=== PATIENT | female | born 1985 | race Caucasian/White ===

== ENCOUNTER 2017-04-25 13:32 | Emergency (ER) | payer BC ==
[~2017-04-25] VITALS: Ht 167.6 cm; Wt 87.0 kg
[~2017-04-25 13:32] MED LIST: LEVO75TA5 PO; OXYC1TAB3 PO; SIMV40TA2 PO
[2017-04-25 13:40] VITALS: TEMP 36.9; Ht 167.6 cm; Wt 87.0 kg
[2017-04-25] MEDS ORDERED: KETOROLAC TROMETHAMINE 30 MG/ML VIAL IV STA (14:17)
[2017-04-25] MEDS ORDERED: SODIUM CHLORIDE 0.9% 1000ML 1,000 ML IV STA (14:17)
[2017-04-25] MEDS ORDERED: IBUP-1050 PO (14:29)
[2017-04-25] MEDS ORDERED: FLUT0.15 NAE (14:29)
[2017-04-25] MEDS ORDERED: SERT50TA PO (14:29)
[2017-04-25] MEDS ORDERED: DIPH1TAB87 PO (14:29)
[2017-04-25 14:37] LABS: URINE APPEARANCE CLEAR (CLEAR); URINE BILIRUBIN NEG (NEG); URINE COLOR YELLOW; URINE EPITHELIAL CELL AUTO 20-30 /lpf (0-5); URINE NITRITE NEG (NEG); URINE PH 5.5 (4.5-7.5); UROBILINOGEN NEG (NEG); ZZUR CULT IF INDIC CLEAN CATCH NO
--- NOTE | 2017-04-25 14:40 | EMERGENCY ROOM VISIT NOTE ---
History Report prepared by Zacarias: Be Pickering Under the Supervision of: Dr. Ken Becerra M.D. First contact with patient: 14:14 Chief Complaint: FLANK PAIN Stated Complaint: LEFT FLANK PAIN History of Present Illness The patient is a 31 year old female who presents to the Emergency Room with complaints of worsening left lower flank pain for the past week. She currently rates her discomfort as an 8/10 in severity. The patient states that the pain feels like a knife is stabbing her, and she states that the pain radiates from her back to her front abdomen as well. She states that the severity of the pain goes from a 5/10 to a 8/10 in severity. She additionally states that she is having some nausea from the pain. The patient denies any problems urinating or troubles with bowel movements. She states that her last bowel movement was two days ago, though this is normal for her. She additionally denies any leg pain, fevers, chills, vaginal discharge, pain with urination. The patient was evaluated in the ED for similar symptoms a week ago, though this morning she has a very sever pain leading her to come to the ED for evaluation. Her last menstrual cycle was the end of last month. Source of History: patient Onset: a week ago Position: other (left flank) Symptom Intensity: 8/10 Quality: stabbing Timing: worsening Associated Symptoms: + nausea, + abdominal pain, + back pain, No urinary symptoms Review of Systems See HPI for pertinent positives and negatives. A total of ten systems were reviewed and were otherwise negative. Family History Cancer Diabetes mellitus Hypertension Kidney disease Kidney stones Social History Smoking Status: Never Smoker Marital Status: Occupation Status: employed Current/Historical Medications Scheduled Fluticasone Propionate (Nasal) (Flonase Allergy Relief), 1 SPRAY SHAYNA QAM Sertraline (Zoloft), 50 MG PO DAILY Scheduled PRN Diphenhydramine Hcl (Benadryl Allergy), 25 MG PO UD PRN for ALLERGIES Ibuprofen (Advil), 200-600 MG PO Q4H PRN for Pain Allergies Coded Allergies: No Known Allergies (Unverified , 04/25/17) Physical Exam Vital Signs Date Time Temp Pulse Resp B/P (MAP) Pulse Ox O2 Delivery O2 Flow Rate FiO2 04/25/17 17:32 66 18 135/87 99 04/25/17 16:23 66 04/25/17 15:48 65 16 115/77 98 Room Air 04/25/17 13:40 36.9 84 20 142/84 98 Room Air Physical Exam GENERAL: Awake, alert, well-appearing, in no distress HENT: Normocephalic, atraumatic. Oropharynx unremarkable. EYES: Normal conjunctiva. Sclera non-icteric. NECK: Supple. No nuchal rigidity. FROM. No JVD. RESPIRATORY: Clear to auscultation. CARDIAC: Regular rate, normal rhythm. Extremities warm and well perfused. Pulses equal. ABDOMEN: Mild left lower quadrant and left adnexal tenderness. No peritoneal signs. Soft, non-distended. No rebound or guarding. No masses. RECTAL: Deferred. MUSCULOSKELETAL: Chest examination reveals no tenderness. The back is symmetrical on inspection without obvious abnormality. There is no CVA tenderness to palpation. No joint edema. LOWER EXTREMITIES: Calves are equal size bilaterally and non-tender. No edema. No discoloration. NEURO: Normal sensorium. No sensory or motor deficits noted. SKIN: No rash or jaundice noted. Medical Decision & Procedures ER Provider Diagnostic Interpretation: Radiology results as stated below per my review and radiologist interpretation: PELVIC ULTRASOUND, TRANSABDOMINAL AND TRANSVAGINAL HISTORY: Left lower quadrant abdominal pain. COMPARISON: Pelvic ultrasound 04/20/2017. FINDINGS: Uterus: 7.9 x 3.4 x 4.3 cm. A few small nabothian cysts. Endometrial stripe: 1 cm in thickness. Right ovary: Normal in size and demonstrates normal color flow. A few small follicles/cysts. Left ovary: Normal in size and demonstrates normal color flow. A few small follicles/cysts. Miscellaneous:Small amount of pelvic free fluid. IMPRESSION: 1. Small amount of pelvic free fluid. This could be physiologic. This remains unchanged 2. Otherwise, the uterus and ovaries are within normal limits. Electronically signed by: Antoni Sanchez M.D. 04/25/2017 3:44 PM Dictated Date/Time: 04/25/2017 3:41 PM Laboratory Results 04/25/17 14:40 Red Blood Count 4.68, Mean Corpuscular Volume 90.4, Mean Corpuscular Hemoglobin 30.3, Mean Corpuscular Hemoglobin Concent 33.6, Mean Platelet Volume 10.4, Neutrophils (%) (Auto) 76.9, Lymphocytes (%) (Auto) 17.6, Monocytes (%) (Auto) 4.6, Eosinophils (%) (Auto) 0.4, Basophils (%) (Auto) 0.2, Neutrophils # (Auto) 7.71, Lymphocytes # (Auto) 1.76, Monocytes # (Auto) 0.46, Eosinophils # (Auto) 0.04, Basophils # (Auto) 0.02 04/25/17 14:40 Test 04/25/17 14:15 04/25/17 14:40 04/25/17 17:15 Urine Color YELLOW Urine Appearance CLEAR (CLEAR) Urine pH 5.5 (4.5-7.5) Urine Specific [place] 1.010 (1.000-1.030) Urine Protein NEG (NEG) Urine Glucose (UA) NEG (NEG) Urine Ketones 1+ (NEG) Urine Occult Blood NEG (NEG) Urine Nitrite NEG (NEG) Urine Bilirubin NEG (NEG) Urine Urobilinogen NEG (NEG) Urine Leukocyte Esterase SMALL (NEG) Urine WBC (Auto) 5-10 /hpf (0-5) Urine RBC (Auto) 0-4 /hpf (0-4) Urine Hyaline Casts (Auto) 0 /lpf (0-5) Urine Epithelial Cells (Auto) 20-30 /lpf (0-5) Urine Bacteria (Auto) NEG (NEG) Urine Test NEG (NEG) White Blood Count 10.02 K/uL (4.8-10.8) Red Blood Count 4.68 M/uL (4.2-5.4) Hemoglobin 14.2 g/dL (12.0-16.0) Hematocrit 42.3 % (37-47) Mean Corpuscular Volume 90.4 fL (80-100) Mean Corpuscular Hemoglobin 30.3 pg (25-34) Mean Corpuscular Hemoglobin Concent 33.6 g/dl (32-36) Platelet Count 319 K/uL (130-400) Mean Platelet Volume 10.4 fL (7.4-10.4) Neutrophils (%) (Auto) 76.9 % Lymphocytes (%) (Auto) 17.6 % Monocytes (%) (Auto) 4.6 % Eosinophils (%) (Auto) 0.4 % Basophils (%) (Auto) 0.2 % Neutrophils # (Auto) 7.71 K/uL (1.4-6.5) Lymphocytes # (Auto) 1.76 K/uL (1.2-3.4) Monocytes # (Auto) 0.46 K/uL (0.11-0.59) Eosinophils # (Auto) 0.04 K/uL (0-0.5) Basophils # (Auto) 0.02 K/uL (0-0.2) RDW Standard Deviation 44.5 fL (36.4-46.3) RDW Coefficient of Variation 13.5 % (11.5-14.5) Immature Granulocyte % (Auto) 0.3 % Immature Granulocyte # (Auto) 0.03 K/uL (0.00-0.02) Anion Gap 10.0 mmol/L (3-11) Est Creatinine Clear Calc Drug Dose 93.4 ml/min Estimated GFR () 90.7 Estimated GFR (Non- 78.3 BUN/Creatinine Ratio 10.2 (10-20) Calcium Level 9.7 mg/dl (8.5-10.1) Total Bilirubin 0.5 mg/dl (0.2-1) Direct Bilirubin 0.1 mg/dl (0-0.2) Aspartate Amino Transf (AST/SGOT) 27 U/L (15-37) Alanine Aminotransferase (ALT/SGPT) 30 U/L (12-78) Alkaline Phosphatase 110 U/L (45-117) Total Protein 8.6 gm/dl (6.4-8.2) Albumin 4.4 gm/dl (3.4-5.0) Lipase 104 U/L (73-393) Date/Time Source Procedure Growth Status 04/25/17 17:15 Vaginal Swab Trichomonas Preparation - Final Complete Laboratory results reviewed by me Medications Administered Medications (Trade) Dose Ordered Sig/Reagan Route Start Time Stop Time Status Last Admin Dose Admin Sodium Chloride 1,000 ml @ 999 mls/hr Q1H1M STAT IV 04/25/17 14:17 04/25/17 15:17 DC 04/25/17 14:48 999 MLS/HR Ketorolac Tromethamine (Toradol Inj) 30 mg NOW STAT IV 04/25/17 14:17 04/25/17 14:22 DC 04/25/17 14:48 30 MG ECG Indication: abdominal pain, other (flank pain) Rate (beats per minute): 63 Rhythm: normal sinus Findings: no acute ischemic change, other (Normal axis) ED Course 1414: The patient was evaluated in room B11. A complete history and physical exam was performed. 1417: Toradol 30mg IV, Sodium Chloride 1000 ml @ 999 mls/hr IV 1716: I reevaluated the patient. Discussed results and discharge instructions: She verbalized understanding and agreement. The patient is ready for discharge. Medical Decision I reviewed the patient's past medical history, medications, and the nursing notes as described above. Differential Diagnoses include: UTI, pyelonephritis, ectopic , ruptured ovarian cyst, mittelschmerz, endometriosis, intermittent torsion, renal stone, diverticulitis. The patient is a 31-year-old woman who presents to emergency department with the complaint of left lower quadrant and left flank pain that has been intermittent since she was seen in the emergency department one week ago and had a CT scan that showed small on of free fluid in the left pelvis that was likely physiologic otherwise her CT scan and transvaginal ultrasound were unremarkable. Patient was supposed to follow up with her plastic surgery coordinator in the next 6 weeks for an outpatient ultrasound ordered given the patients pain return comes to emergency department.. On arrival the patient is well- appearing in no acute distress. Afebrile with stable vital signs. Mild left lower quadrant tenderness without any peritoneal signs. Labs unremarkable including WBC wnl. TVUS without signs of torsion. Free fluid unchanged from prior. Ddx still includes possible previous ruptured ovarian cyst , mittelschmerz or less likely endometriosis, intermittent torsion, Unclear definitive cause of patient's sx at this time, although unlikely to be emergent process given improved WBC count and well-appearing. Pelvic exam unremarkable, no lesions, mild discharge likely physiologic. No CMT. Findings and plan for follow-up with farm machinery mechanic reviewed with patient. Patient agreeable and d/c'd per discharge instructions. Medication Reconcilliation Current Medication List: was personally reviewed by me Blood Pressure Screening Patient's blood pressure: Normal blood pressure Impression Primary Impression: Lower abdominal pain Scribe Attestation The scribe's documentation has been prepared under my direction and personally reviewed by me in its entirety. I confirm that the note above accurately reflects all work, treatment, procedures, and medical decision making performed by me. Departure Information Dispostion Home / Self-Care Referrals No Doctor, Assigned (PCP) Forms HOME CARE DOCUMENTATION FORM, IMPORTANT VISIT INFORMATION Patient Instructions ED Abdominal Pain Unkn Cause, [facility] Additional Instructions Please follow up with your plastic surgery coordinator in the next 1-3 days for re-evaluation. The cause of your abdominal pain is not clear at this time but may due to a previously ruptured ovarian cyst, ovulatory pain, endometriosis, intermittent ovarian torsion. However, today your exam, ultrasound, and lab results did not show signs of an emergent condition at this time. You culture result will take several days to result and you will only be called if results are positive. Continue your current medications. Return to the emergency department for worsening symptoms as described in the accompanying instructions.
[2017-04-25 14:47] LABS: MANUAL MICROSCOPIC REQUIRED? NO; REVIEW REQ? NO
[2017-04-25 15:01] LABS: BASO % 0.2 %; BASO ABS # 0.02 K/uL (0-0.2); COMPLETE YES; EOS % 0.4 %; HEMATOCRIT 42.3 % (37-47); IG% 0.3 %; LYMPH % 17.6 %; LYMPH ABS # 1.76 K/uL (1.2-3.4); MEAN CELL VOLUME 90.4 fL (80-100); MEAN CORPUSCULAR HEMOGLOBIN 30.3 pg (25-34); MEAN CORPUSCULAR HGB CONC 33.6 g/dl (32-36); MEAN PLATELET VOLUME 10.4 fL (7.4-10.4); MONO % 4.6 %; NEUT % 76.9 %; PLATELET COUNT 319 K/uL (130-400); RED BLOOD COUNT 4.68 M/uL (4.2-5.4); WHITE BLOOD COUNT 10.02 K/uL (4.8-10.8)
[2017-04-25 15:24] LABS: BUN/CREATININE RATIO 10.2 (10-20); CALCIUM 9.7 mg/dl (8.5-10.1); CREATININE 0.96 mg/dl (0.60-1.20); POTASSIUM 4.3 mmol/L (3.5-5.1)
--- NOTE | 2017-04-25 15:45 | DIAGNOSTIC IMAGING REPORT ---
PELVIC ULTRASOUND, TRANSABDOMINAL AND TRANSVAGINAL HISTORY: Left lower quadrant abdominal pain. COMPARISON: Pelvic ultrasound 04/20/2017. FINDINGS: Uterus: 7.9 x 3.4 x 4.3 cm. A few small nabothian cysts. Endometrial stripe: 1 cm in thickness. Right ovary: Normal in size and demonstrates normal color flow. A few small follicles/cysts. Left ovary: Normal in size and demonstrates normal color flow. A few small follicles/cysts. Miscellaneous:Small amount of pelvic free fluid. IMPRESSION: 1. Small amount of pelvic free fluid. This could be physiologic. This remains unchanged 2. Otherwise, the uterus and ovaries are within normal limits. Electronically signed by: Antoni Sanchez M.D. 04/25/2017 3:44 PM Dictated Date/Time: 04/25/2017 3:41 PM
[2017-04-25 17:32] VITALS: BP 135/87; PULSE 66; O2SAT 99
[2017-04-28 00:33] LABS: CHLAMYDIA TRACH RNA*** NOT DETECTED (NOT DETECTED); GC (NEIS GONORRHOEAE)RNA** NOT DETECTED (NOT DETECTED)
== END 2017-04-25 17:34 | disposition home or self-care (01) ==
LOC: C.EDB 13:33
DX: R10.32 Left lower quadrant pain (principal); Z83.3 Family history of diabetes mellitus; Z82.49 Family history of ischemic heart disease and other diseases of the circulatory system; Z84.1 Family history of disorders of kidney and ureter